=== PATIENT | male | born 1940 | race Caucasian/White ===

== ENCOUNTER 2019-01-26 07:42 | Day surgery (SDC) | payer MEDICARE, OTHER | END 2019-01-26 10:50 | disposition home or self-care (01) | LOC: JASU-SURG 07:42 ==

== ENCOUNTER 2019-02-09 06:36 | Day surgery (SDC) | payer MEDICARE, OTHER ==
[2019-02-08 08:41] VITALS: BMI 31.5
[~2019-02-09 06:36] MED LIST: ACETAMINOPHEN 325 MG TABLET (FP) PO PRN
[2019-02-09] MEDS ORDERED: CYCLOPENTOLATE HCL 1% OPHTH SOLN 2 ML BOTTLE ONE (06:45)
[2019-02-09] MEDS ORDERED: PHENYLEPHRINE 2.5% OPHTH SOLN 15 ML BOTTLE ONE (06:45)
[2019-02-09] MEDS ORDERED: OFLOXACIN 0.3% OPHTHALMIC SOLUTION 5 ML BOTTLE ONE (06:45)
[2019-02-09] MEDS ORDERED: TROPICAMIDE 1% OPHTH SOLN 15 ML BOTTLE ONE (06:46)
[2019-02-09] MEDS ORDERED: KETOROLAC TROMETHAMINE 0.5% EYE DROP 1 DROP DROPS ONE (06:46)
[2019-02-09 06:55] VITALS: PULSE 63
[2019-02-09] MEDS: TROPICAMIDE 1% OPHTH SOLN 15 ML BOTTLE OP SCH ×3 (06:55→07:05)
[2019-02-09] MEDS: CYCLOPENTOLATE HCL 1% OPHTH SOLN 2 ML BOTTLE OP SCH ×3 (06:55→07:05)
[2019-02-09] MEDS: KETOROLAC TROMETHAMINE 0.5% EYE DROP 1 DROP DROPS OP SCH ×3 (06:55→07:05)
[2019-02-09] MEDS: OFLOXACIN 0.3% OPHTHALMIC SOLUTION 5 ML BOTTLE OP SCH ×3 (06:55→07:05)
[2019-02-09] MEDS: PHENYLEPHRINE 2.5% OPHTH SOLN 15 ML BOTTLE OP SCH ×3 (06:55→07:05)
[2019-02-09] MEDS ORDERED: CHONDROITIN SU A/HYALUR SOD 1 KIT ONE (07:12)
[2019-02-09] MEDS ORDERED: TETRACAINE 0.5% OPHTH SOLN 2 ML BOTTLE ONE (07:25)
[2019-02-09] MEDS ORDERED: WATER FOR INJ,STERILE 10 ML ONE (07:25)
[2019-02-09] MEDS ORDERED: VANCOMYCIN 500 MG VIAL (RESTRICTED TO ID ONLY) ONE (07:25)
[2019-02-09] MEDS ORDERED: LIDOCAINE HCL/PF 1% SDV 5ML VIAL ONE (07:25)
[2019-02-09] MEDS ORDERED: EPINEPHrine/PF 1 MG/1 ML (1:1,000) AMPULE ONE (07:25)
[2019-02-09] MEDS ORDERED: TRYPAN BLUE 0.5 ML DISP.SYRIN ONE (07:25)
[2019-02-09] MEDS ORDERED: POVIDONE-IODINE 5% OPHTHALMIC PREP 30 ML SOLUTION ONE (07:26)
[2019-02-09] MEDS ORDERED: PHENYLEPHRINE/KETOROLAC 4 ML VIAL IO ONE ×2 (07:45→08:31)
[2019-02-09] MEDS ORDERED: MIDAZOLAM HCL 2 MG/2 ML SINGLE DOSE VIAL ONE (08:11)
[2019-02-09] MEDS ORDERED: TETRACAINE 0.5% OPHTH SOLN 2 ML BOTTLE OD ONE (08:13)
[2019-02-09] MEDS ORDERED: POVIDONE-IODINE 5% OPHTHALMIC PREP 30 ML SOLUTION OD ONE (08:17)
[2019-02-09] MEDS ORDERED: BSS (NA/CA/MG/K) BALANCED SALT SOLUTION OPHTH SOLN 15 ML BOTTLE OD ONE (08:24)
[2019-02-09] MEDS ORDERED: CHONDROITIN SU A/HYALUR SOD 1 KIT IO ONE (08:24)
[2019-02-09] MEDS ORDERED: LIDOCAINE HCL 1% PRESERVATIVE FREE - 30ML VIAL IO ONE (08:24)
[2019-02-09] MEDS ORDERED: TRYPAN BLUE 0.5 ML DISP.SYRIN IO ONE (08:24)
[2019-02-09 09:47] VITALS: TEMP 98
[2019-02-09 11:28] VITALS: BP 144/50
--- NOTE | 2019-02-09 12:50 | OP ---
DATE OF OPERATION: 02/09/2019 OPERATION: Phacoemulsification of right cataract, capsular staining with Trypan blue and posterior chamber intraocular lens implantation, lens used [id number], 23.0 diopter power, Serial No. [id number]. PREOPERATIVE DIAGNOSIS: Cataract, right eye. POSTOPERATIVE DIAGNOSIS: Cataract, right eye. SURGEON: Diane Atkinson M.D. ANESTHESIA: Topical MAC. COMPLICATIONS: None. PROCEDURE: The patient was brought to the operating room and correctly identified along with the operative site as well as correct intraocular lens power. He was then prepped and draped in the usual sterile fashion including 5% Betadine solution in the conjunctival sac and an eyelid drape. An eyelid speculum was then placed into the right eye. The eye was inspected and a questionable defect in the anterior capsule was noted in the infranasal anterior capsule. A 5-mm pupil was noted as well. A paracentesis port was created and 0.5 mL of preservative-free Lidocaine 1% was given intracamerally. An air bubble was then placed into the eye. The capsule was then stained with Trypan blue and then the Trypan blue irrigated from the eye with 0.5 mL of the 1% lidocaine. Then 0.3 mL of the BSS fluid, which had been spiked with Omidria, was placed in the eye as well. Viscoelastic was injected into the anterior chamber, and a temporal clear corneal wound was created. A continuous circular capsulorrhexis was successfully performed. The defect in the capsule was seen to be from an anterior cortical change in the cataract. The nucleus was hydro-dissected with BSS and then removed with phacoemulsification via [id number] approach. The remaining cortical material was irrigated and aspirated from the eye. Viscoelastic was injected to inflate the capsular bag. The lens was injected in the capsular bag. The viscoelastic was then irrigated and aspirated from the eye. At the end of the procedure, the intraocular lens was noted to be well centered and covered by the anterior capsule border. All wounds were tested and found to be watertight. No suture was placed. Topical Vancomycin given, the eye patched and shielded, and the patient discharged from the operating room in a stable condition. DIANE ATKINSON M.D. YNAI/[id number]
== END 2019-02-09 10:50 | disposition home or self-care (01) ==
LOC: JASU-SURG 06:36
PROVIDERS: ATTEND Ophthalmology
PROC: 08RJ3JZ Replacement of Right Lens with Synthetic Substitute, Percutaneous Approach (ICD-10-PCS; principal; 2019-02-09 08:00)
DX: H26.9 Unspecified cataract (principal); I12.0 Hypertensive chronic kidney disease with stage 5 chronic kidney disease or end stage renal disease; E11.22 Type 2 diabetes mellitus with diabetic chronic kidney disease; N18.6 End stage renal disease; Z99.2 Dependence on renal dialysis; Z79.4 Long term (current) use of insulin
CPT/HCPCS: 36415; 82962; 84132; C9447